=== PATIENT | male | born 1985 | race Caucasian/White ===

== ENCOUNTER → 2016-06-08 | Outpatient (CLI) | payer OTHER ==
[~2016-06-08] MED LIST: OPTIRAY 320 IV PRN
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
== END | disposition home or self-care (01) ==
LOC: C.CTS 10:50
PROVIDERS: ATTEND Emergency Medicine
DX: R10.9 Unspecified abdominal pain (principal)

== ENCOUNTER → 2016-07-28 | Outpatient (CLI) | payer OTHER, BC ==
--- NOTE | 2016-07-28 12:16 | DIAGNOSTIC IMAGING REPORT ---
ABDOMEN ULTRASOUND FOR HERNIA CLINICAL HISTORY: UMBILICAL HERNIA COMPARISON STUDY: Abdomen CT 06/08/2016. FINDINGS: No evidence for an umbilical hernia. No fluid collections or masses within the periumbilical location. IMPRESSION: No evidence for an umbilical hernia. Electronically signed by: Siddharth Hicks M.D. 07/28/2016 12:14 PM Dictated Date/Time: 07/28/2016 12:13 PM
== END | disposition home or self-care (01) ==
LOC: C.ULTR 11:50
PROVIDERS: ATTEND Nurse Practitioner Adult Health
DX: R10.30 Lower abdominal pain, unspecified (principal)